=== PATIENT | female | born 1955 | race Caucasian/White ===

== ENCOUNTER 2018-11-18 18:58 | Outpatient (REF) | payer OTHER, SELFPAY | END 2018-11-18 19:18 | LOC: NCHCN 18:58 | PROVIDERS: Visit Provider Nurse Practitioner Family | DX: N89.8 Other specified noninflammatory disorders of vagina (principal) | CPT/HCPCS: 87102; 87205; 87206 ==

== ENCOUNTER 2019-05-18 22:18 | Outpatient (REF) | payer OTHER, SELFPAY | END 2019-05-18 22:38 | LOC: NCHCN 22:18 | PROVIDERS: Visit Provider Nurse Practitioner Family | DX: R10.2 Pelvic and perineal pain (principal) | CPT/HCPCS: 87480; 87510; 87660 ==

== ENCOUNTER 2019-06-28 20:35 | Outpatient (REF) | payer OTHER, SELFPAY ==
[2019-06-30 15:17] LABS: Chlamydia Result Negative (Negative); GC Result Negative (Negative)
== END 2019-06-28 20:55 ==
LOC: NCHCN 20:35
PROVIDERS: Visit Provider Nurse Practitioner Family
DX: N89.8 Other specified noninflammatory disorders of vagina (principal); Z11.3 Encounter for screening for infections with a predominantly sexual mode of transmission
CPT/HCPCS: 87491; 87591; 87480; 87510; 87660

== ENCOUNTER 2021-02-10 10:34 | Outpatient (REF) | payer OTHER, SELFPAY | END 2021-02-10 10:35 | disposition home or self-care (01) | LOC: NCHCN 10:34 | PROVIDERS: Visit Provider Nurse Practitioner Family | DX: N89.8 Other specified noninflammatory disorders of vagina (principal) | CPT/HCPCS: 87480; 87510; 87660 ==

== ENCOUNTER 2021-02-13 12:59 | Outpatient (REF) | payer OTHER, SELFPAY ==
[2021-02-13 19:17] LABS: HCT 40.8 % (36.0-46.0); MCH 26.6 pg (27.0-33.0); MCHC 31.9 % (32.0-36.0); MCV 83.6 fL (80-95); MPV 9.7 fL (8.0-11.0); Platelet Count 387 10^3/uL (130-400); RBC 4.88 10^6/uL (3.93-5.22); RDW 14.4 % (11.7-14.6); RDW-SD 43.8 fL; WBC 7.93 10^3/uL (4.4-10.8)
[2021-02-13 19:22] LABS: Calculated LDL 229 mg/dL (<100); Cholesterol 331 mg/dL (<200); HDL Cholesterol 67 mg/dL (40-60); Triglyceride 179 mg/dL (<150)
== END 2021-02-13 13:00 | disposition home or self-care (01) ==
LOC: NCHCN 12:59
PROVIDERS: Visit Provider Nurse Practitioner Family
DX: E78.5 Hyperlipidemia, unspecified (principal); N89.8 Other specified noninflammatory disorders of vagina; Z86.2 Personal history of diseases of the blood and blood-forming organs and certain disorders involving the immune mechanism
CPT/HCPCS: 80061; 85027

== ENCOUNTER 2021-12-16 18:31 | Outpatient (REF) | payer OTHER, SELFPAY ==
[2021-12-16 19:49] LABS: Bilirubin Negative (Negative); Blood Negative (Negative); Clarity Clear (Clear); Glucose Negative (Negative); Ketones Negative (Negative); Leukocyte Esterase Negative (Negative); Nitrite Negative (Negative); Specific Gravity <= 1.005 (1.005-1.025); Urobilinogen 0.2 EU/dL (Up TO 0.2)
== END 2021-12-16 18:32 | disposition home or self-care (01) ==
LOC: NCHCN 18:31
PROVIDERS: Visit Provider Nurse Practitioner Family
DX: R35.0 Frequency of micturition (principal); N89.8 Other specified noninflammatory disorders of vagina
CPT/HCPCS: 81003; 87480; 87510; 87660

== ENCOUNTER 2022-02-23 09:45 | Outpatient (REF) | payer OTHER, SELFPAY ==
[2022-02-23 20:10] LABS: ALT 40 U/L (14-59); AST 33 U/L (15-37); Alkaline Phosphatase 106 U/L (46-116); Anion Gap 8.7 mmol/L (3-11); BUN 16 mg/dL (7-18); Bilirubin, Total 0.3 mg/dL (0.2-1.0); CO2 28.3 mmol/L (21.0-32.0); CREATININE 0.7 mg/dL (0.55-1.02); Calcium 9.4 mg/dL (8.5-10.1); Calculated LDL 211 mg/dL (<100); Chloride 103 mmol/L (98-107); Cholesterol 320 mg/dL (<200); Estimated GFR 96.52 (mL/min/1.73m2); Glucose 95 mg/dL (74-106); HDL Cholesterol 68 mg/dL (40-60); Potassium 4.7 mmol/L (3.5-5.1); Sodium 140 mmol/L (136-145); Triglyceride 209 mg/dL (<150)
== END 2022-02-23 09:46 | disposition home or self-care (01) ==
LOC: NCHCN 09:45
PROVIDERS: PCP Nurse Practitioner Family; Visit Provider Nurse Practitioner Family
DX: E78.5 Hyperlipidemia, unspecified (principal)
CPT/HCPCS: 80053; 80061

== ENCOUNTER 2022-10-06 15:02 | Outpatient (REF) | payer MEDICARE, SELFPAY ==
[2022-10-06 19:52] LABS: FREE T4 0.78 ng/dL (0.76-1.46)
== END 2022-10-06 15:03 | disposition home or self-care (01) ==
LOC: NCHCN 15:02
PROVIDERS: PCP Nurse Practitioner Family; Visit Provider Nurse Practitioner Family
DX: E04.1 Nontoxic single thyroid nodule (principal)
CPT/HCPCS: 84439; 84443

== ENCOUNTER 2023-01-05 16:04 | Outpatient (REF) | payer MEDICARE, SELFPAY ==
[2023-01-05 19:02] LABS: Abs Immature Grans 0.04 10^3/uL (0.0-0.06); Absolute Basophil Count 0.11 10^3/uL (0.0-0.2); Absolute Eosinophil Count 0.21 10^3/uL (0.0-0.7); Absolute Lymphocyte Count 3.65 10^3/uL (1.2-3.4); Absolute Monocyte Count 0.79 10^3/uL (0.1-0.8); Basophils % 0.8; Eosinophils % 1.6; HCT 38.7 % (36.0-46.0); HGB 12.6 g/dL (11.2-15.7); Immature Grans % 0.3; Lymphocytes % 27.7; MCH 26.2 pg (27.0-33.0); MCHC 32.6 % (32.0-36.0); MCV 81 fL (80-95); MPV 9.8 fL (8.0-11.0); Neutrophils % 63.6; Platelet Count 410 10^3/uL (130-400); RBC 4.81 10^6/uL (3.93-5.22); RDW 15.1 % (11.7-14.6); RDW-SD 44.3 fL; WBC 13.17 10^3/uL (4.4-10.8)
[2023-01-05 19:06] LABS: Absolute Neutrophil Count 8.38 10^3/uL (1.2-6.7)
[2023-01-05 20:23] LABS: ALT 36 U/L (14-59); AST 27 U/L (15-37); Albumin 3.8 g/dL (3.4-5.0); Alkaline Phosphatase 109 U/L (46-116); Anion Gap 8.1 mmol/L (3-11); BUN 14 mg/dL (7-18); Bilirubin, Total 0.3 mg/dL (0.2-1.0); CO2 27.9 mmol/L (21.0-32.0); CREATININE 0.7 mg/dL (0.55-1.02); Calcium 9.3 mg/dL (8.5-10.1); Chloride 102 mmol/L (98-107); Estimated GFR 95.92 (mL/min/1.73m2); Glucose 92 mg/dL (74-106); Potassium 4.1 mmol/L (3.5-5.1); Sodium 138 mmol/L (136-145); TSH (W/Ref FT4) 1.92 uIU/mL (0.36-3.74)
[2023-01-05 20:37] LABS: Troponin I < 50 ng/L (<or=60)
== END 2023-01-05 16:05 | disposition home or self-care (01) ==
LOC: NCHCN 16:04
PROVIDERS: PCP Nurse Practitioner Family; Visit Provider Physician Assistant
DX: R00.2 Palpitations (principal); R06.02 Shortness of breath; R42 Dizziness and giddiness
CPT/HCPCS: 80053; 84443; 84484; 85025

== ENCOUNTER 2023-01-22 09:01 | Outpatient (RCR) | payer MEDICARE, SELFPAY ==
--- NOTE | 2023-01-22 09:00 | HOLTER_ITS ---
APPROVED REPORT Conclusion This is a 48-hour Holter monitor ordered for palpitations Rhythm throughout was sinus with an average heart rate of 90. Minimum was 71, maximum 147 There were 3 isolated PVCs There was 1 isolated atrial premature beat. There was one self-limited atrial run 4 beats in duratio n There was no atrial fibrillation no high-grade AV block no pauses greater than 3 seconds Patient's symptoms were reported all of which corresponded to sinus rhythm
== END 2023-01-23 23:59 | disposition home or self-care (01) ==
LOC: CARDOPNVT 09:01
PROVIDERS: PCP Nurse Practitioner Family; Visit Provider Physician Assistant
DX: R42 Dizziness and giddiness (principal); R00.2 Palpitations
CPT/HCPCS: 93225

== ENCOUNTER 2023-02-01 16:55 | Outpatient (RCR) | payer MEDICARE, SELFPAY | END 2023-02-23 23:59 | disposition home or self-care (01) | LOC: CARDOPNVT 16:55 | PROVIDERS: PCP Nurse Practitioner Family; Visit Provider Physician Assistant | DX: R00.2 Palpitations (principal) | CPT/HCPCS: 93227; 93226 ==

== ENCOUNTER 2024-11-15 16:50 | Outpatient (REF) | payer MEDICARE, SELFPAY ==
[2024-11-15 21:10] LABS: Abs Immature Grans 0.03 10^3/uL (0.0-0.06); HCT 37.9 % (36.0-46.0); HGB 11.9 g/dL (11.2-15.7); Immature Grans % 0.4 %; MCH 25.9 pg (27.0-33.0); MCHC 31.4 % (32.0-36.0); MCV 82 fL (80-95); MPV 9.9 fL (8.0-11.0); Platelet Count 378 10^3/uL (130-400); RBC 4.60 10^6/uL (3.93-5.22); RDW 15.2 % (11.7-14.6); RDW-SD 45.6 fL; WBC 8.45 10^3/uL (4.4-10.8)
[2024-11-15 21:38] LABS: Iron 46 ug/dL (50-170); Total Iron Binding Capacity 368 ug/dL (250-450); Transferrin Sat 13 % (15-50)
[2024-11-15 21:56] LABS: ALT 37 U/L (14-59); AST 19 U/L (15-37); Albumin 3.8 g/dL (3.4-5.0); Alkaline Phosphatase 114 U/L (46-116); Anion Gap 9.2 mmol/L (3-11); BUN 11 mg/dL (7-18); Bilirubin, Total 0.2 mg/dL (0.2-1.0); CO2 28.8 mmol/L (21.0-32.0); Calcium 9.5 mg/dL (8.5-10.1); Chloride 105 mmol/L (98-107); Estimated GFR 98.32 (mL/min/1.73m2); Ferritin 31 ng/mL (8-252); Glucose 127 mg/dL (74-106); Magnesium 2.0 mg/dL (1.8-2.4); Potassium 4.1 mmol/L (3.5-5.1); Sodium 143 mmol/L (136-145); TSH (W/Ref FT4) 2.39 uIU/mL (0.36-3.74); Total Protein 7.8 g/dL (6.4-8.2); Vitamin D 25 Total 16 ng/mL (30-100)
== END 2024-11-15 16:51 | disposition home or self-care (01) ==
LOC: NCHCN 16:50
PROVIDERS: PCP Nurse Practitioner Family; Visit Provider Physician Assistant
DX: R23.2 Flushing (principal); E55.9 Vitamin D deficiency, unspecified; R39.9 Unspecified symptoms and signs involving the genitourinary system; N89.8 Other specified noninflammatory disorders of vagina
CPT/HCPCS: 80053; 82306; 82728; 83540; 83550; 83735; 84443; 85025; 87086; 87480; 87510; 87660

== ENCOUNTER 2025-02-22 10:31 | Outpatient (REF) | payer MEDICARE, SELFPAY ==
[2025-02-22 20:02] LABS: Iron 54 ug/dL (50-170); Total Iron Binding Capacity 343 ug/dL (250-450)
[2025-02-22 20:28] LABS: Calculated LDL 212 mg/dL (<100); Cholesterol 311 mg/dL (<200); Ferritin 30 ng/mL (8-252); HDL Cholesterol 68 mg/dL (>or=50); Triglyceride 156 mg/dL (<150); Vitamin D 25 Total 18 ng/mL (30-100)
== END 2025-02-22 10:32 | disposition home or self-care (01) ==
LOC: NCHCN 10:31
PROVIDERS: PCP Nurse Practitioner Family; Visit Provider Nurse Practitioner Family
DX: E61.1 Iron deficiency (principal); E55.9 Vitamin D deficiency, unspecified; E78.5 Hyperlipidemia, unspecified
CPT/HCPCS: 80061; 82306; 82728; 83540; 83550